=== PATIENT | female | born 1970 | race American Indian/Alaskan Native ===

== ENCOUNTER 2017-11-04 20:08 | Emergency (ER) | payer OTHER ==
[2017-11-04 20:22] VITALS: BP 141/83
--- NOTE | 2017-11-04 21:03 | Emergency Department Report ---
Abscess Boil HPI - HPI Chief Complaint: Skin/Abscess/Foreign Body Stated Complaint: BOIL Time Seen by Provider: 11/04/17 20:58 History: Yes Pain, No Fever, No Purulent Drainage, No Numbness, No Foreign Body , No Previous History, No Insect Bite HPI: 46-year-old -[place] female comes in for 3 day history of abscess under right arm. Patient has a past medical history hypertension diabetes hyperlipidemia. She reports that the abscess is tender very painful when she moves her arm. She didn't take an [id number] pain medication which she says has not really helped since the abscess is getting larger. Home Medications: Home Medications Medication Instructions Recorded Confirmed Last Taken Ferrous Gluconate [Iron] 236 mg PO BID 02/10/15 02/17/15 02/16/15 Levemir Flextouch 30 unit SQ HS 02/10/15 02/17/15 02/16/15 Lisinopril 10 mg PO DAILY 02/10/15 02/17/15 02/17/15 05:15 NovoLOG Mix 70/30 20 unit SQ QPM 02/10/15 02/17/15 02/16/15 NovoLOG Mix 70/30 40 unit SQ QAM 02/10/15 02/17/15 02/16/15 Ranitidine HCl [Acid Import Export Clerk] 75 mg PO DAILY 02/10/15 02/17/15 02/17/15 05:15 Previous Rx's Medication Instructions Recorded Last Taken Type Docusate Sodium [Colace] 100 mg PO BID PRN #60 capsule 02/18/15 Unknown Rx Ibuprofen [Motrin] 800 mg PO Q8H PRN #60 tablet 02/18/15 Unknown Rx Meth/Meblue/Sod Phos/Psal/Hyos 1 each PO TID #42 capsule 02/18/15 Unknown Rx [Uribel Capsule] Nitrofurantoin [place]/M-Cryst 100 mg PO QDAY #14 capsule 02/18/15 Unknown Rx [Macrobid] oxyCODONE /ACETAMINOPHEN [Percocet 1 tab PO Q6HR PRN #45 tablet 02/18/15 Unknown Rx 5/325] Acetaminophen/Codeine [Tylenol 1 tab PO Q6H PRN 3 Days #12 tab 11/04/17 Unknown Rx /Codeine # 3 tab] Cephalexin [Keflex] 500 mg PO BID 10 Days #20 capsule 11/04/17 Unknown Rx Allergies/Adverse Reactions: Allergies Allergy/AdvReac Type Severity Reaction Status Date / Time No Known Allergies Allergy Verified 11/04/17 20:19 ED Review of Systems ROS: Stated complaint: BOIL Other details as noted in HPI Comment: All other systems reviewed and negative Constitutional: denies: chills, fever Eyes: denies: eye pain, eye discharge, vision change ENT: denies: ear pain, throat pain Respiratory: denies: cough, shortness of breath, wheezing Cardiovascular: denies: chest pain, palpitations Endocrine: no symptoms reported Gastrointestinal: denies: abdominal pain, nausea, diarrhea Genitourinary: denies: urgency, dysuria, discharge Musculoskeletal: denies: back pain, joint swelling, arthralgia Skin: lesions Neurological: denies: headache, weakness, paresthesias Psychiatric: denies: anxiety, depression Hematological/Lymphatic: denies: easy bleeding, easy bruising ED Past Medical Hx - Past Medical History Hx Hypertension: Yes (x 7 yrs, lisinopril) Hx Heart Attack/AMI: No Hx Congestive Heart Failure: No Hx Diabetes: Yes Hx GERD: Yes Hx Liver Disease: No Hx Renal Disease: No Hx Seizures: No Hx Asthma: No Hx COPD: No - Surgical History Additional Surgical History: Hyst - Social History Smoking Status: Never Smoker Substance Use Type: None - Medications Home Medications: Home Medications Medication Instructions Recorded Confirmed Last Taken Type Ferrous Gluconate [Iron] 236 mg PO BID 02/10/15 02/17/15 02/16/15 History Levemir Flextouch 30 unit SQ HS 02/10/15 02/17/15 02/16/15 History Lisinopril 10 mg PO DAILY 02/10/15 02/17/15 02/17/15 05:15 History NovoLOG Mix 70/30 20 unit SQ QPM 02/10/15 02/17/15 02/16/15 History NovoLOG Mix 70/30 40 unit SQ QAM 02/10/15 02/17/15 02/16/15 History Ranitidine HCl [Acid Import Export Clerk] 75 mg PO DAILY 02/10/15 02/17/15 02/17/15 05:15 History Docusate Sodium [Colace] 100 mg PO BID PRN #60 capsule 02/18/15 Unknown Rx Ibuprofen [Motrin] 800 mg PO Q8H PRN #60 tablet 02/18/15 Unknown Rx Meth/Meblue/Sod Phos/Psal/Hyos 1 each PO TID #42 capsule 02/18/15 Unknown Rx [Uribel Capsule] Nitrofurantoin [place]/M-Cryst 100 mg PO QDAY #14 capsule 02/18/15 Unknown Rx [Macrobid] oxyCODONE /ACETAMINOPHEN [Percocet 1 tab PO Q6HR PRN #45 tablet 02/18/15 Unknown Rx 5/325] Acetaminophen/Codeine [Tylenol 1 tab PO Q6H PRN 3 Days #12 tab 11/04/17 Unknown Rx /Codeine # 3 tab] Cephalexin [Keflex] 500 mg PO BID 10 Days #20 capsule 11/04/17 Unknown Rx ED Abscess Boil Physical Exam - Exam General: Vital signs noted. No distress. Alert and acting appropriately. Front/Back of Body, Lg (Color): 1 - 5 cm abscess Size: 5 cm Exam: Yes Tenderness, Yes Fluctuance, Yes Normal Neurologic Exam, Yes Normal Circulation, No Surrounding Cellulites/Erythema, No Crepitation, No Heart Murmur ED Course Vital Signs 11/04/17 20:20 Temperature 97.6 F Pulse Rate 86 Respiratory 20 Rate Blood Pressure 141/83 O2 Sat by Pulse 98 Oximetry Critical care attestation.: If time is entered above; I have spent that time in minutes in the direct care of this critically ill patient, excluding procedure time. ED Medical Decision Making - Medical Decision Making Patient has been evaluated by this provider fast track. Discussed the patient will need to incision and drain the abscess under her right axillary. Discussed with patient that we will place her on antibiotics and have her return in 2-3 days for wound packing removal. Patient verbalized understanding. ED Disposition Clinical Impression: Abscess of right axilla Disposition: DC-01 TO HOME OR SELFCARE Is pt being admited?: No Does the pt Need Aspirin: No Condition: Stable Instructions: Abscess (ED) Additional Instructions: Complete antibiotic as prescribed. Return to the emergency room for packing change in 2 days. Take pain medication as prescribed to not operate heavy machinery while on pain medication. He can follow-up with her primary care doctor in 3-5 days. Prescriptions: Acetaminophen/Codeine [Tylenol /Codeine # 3 tab] 1 tab PO Q6H PRN 3 Days #12 tab PRN Reason: Pain Cephalexin [Keflex] 500 mg PO BID 10 Days #20 capsule Referrals: DARRELL JOHN MD [Primary Care Provider] - 3-5 Days Forms: Work/School Release Form(ED), Accompanied Note
[2017-11-04] MEDS ORDERED: ATIVAN PO ONE ×2 (21:20→21:37)
[2017-11-04] MEDS ORDERED: NORCO 5/325 PO ONE (21:21)
== END 2017-11-04 22:29 | disposition home or self-care (01) ==
LOC: ED 20:08
DX: L02.411 Cutaneous abscess of right axilla (principal); E11.9 Type 2 diabetes mellitus without complications; K21.9 Gastro-esophageal reflux disease without esophagitis; I10 Essential (primary) hypertension
CPT/HCPCS: 99282

== ENCOUNTER 2017-11-07 14:38 | Emergency (ER) | payer OTHER ==
[2017-11-07 14:56] VITALS: BP 100/76
--- NOTE | 2017-11-07 18:05 | Emergency Department Report ---
- General Chief Complaint: Skin/Abscess/Foreign Body Stated Complaint: PACKING REMOVAL Time Seen by Provider: 11/07/17 17:58 Source: patient Mode of arrival: Ambulatory Limitations: No Limitations - History of Present Illness Initial Comments: Patient is a 46-year-old female who presents to ED for wound packing removal from the right axilla. Patient states abscess was drained on Sunday, 3 days ago and packing was placed on Sunday. Patient states she's been changing the wound daily. Signed she denies fevers/chills/nausea vomiting or any other problems. - Related Data Home Medications Medication Instructions Recorded Confirmed Last Taken Ferrous Gluconate [Iron] 236 mg PO BID 02/10/15 02/17/15 02/16/15 Levemir Flextouch 30 unit SQ HS 02/10/15 02/17/15 02/16/15 Lisinopril 10 mg PO DAILY 02/10/15 02/17/15 02/17/15 05:15 NovoLOG Mix 70/30 20 unit SQ QPM 02/10/15 02/17/15 02/16/15 NovoLOG Mix 70/30 40 unit SQ QAM 02/10/15 02/17/15 02/16/15 Ranitidine HCl [Acid Director Of Broadcast] 75 mg PO DAILY 02/10/15 02/17/15 02/17/15 05:15 Previous Rx's Medication Instructions Recorded Last Taken Type Docusate Sodium [Colace] 100 mg PO BID PRN #60 capsule 02/18/15 Unknown Rx Ibuprofen [Motrin] 800 mg PO Q8H PRN #60 tablet 02/18/15 Unknown Rx Meth/Meblue/Sod Phos/Psal/Hyos 1 each PO TID #42 capsule 02/18/15 Unknown Rx [Uribel Capsule] Nitrofurantoin [place]/M-Cryst 100 mg PO QDAY #14 capsule 02/18/15 Unknown Rx [Macrobid] oxyCODONE /ACETAMINOPHEN [Percocet 1 tab PO Q6HR PRN #45 tablet 02/18/15 Unknown Rx 5/325] Acetaminophen/Codeine [Tylenol 1 tab PO Q6H PRN 3 Days #12 tab 11/04/17 Unknown Rx /Codeine # 3 tab] Cephalexin [Keflex] 500 mg PO BID 10 Days #20 capsule 11/04/17 Unknown Rx Allergies Allergy/AdvReac Type Severity Reaction Status Date / Time No Known Allergies Allergy Verified 11/07/17 14:51 ED Review of Systems ROS: Stated complaint: PACKING REMOVAL Other details as noted in HPI Constitutional: denies: chills, fever Eyes: denies: eye pain, eye discharge, vision change ENT: denies: ear pain, throat pain Respiratory: denies: cough, shortness of breath, wheezing Cardiovascular: denies: chest pain, palpitations Endocrine: no symptoms reported Gastrointestinal: denies: abdominal pain, nausea, diarrhea Genitourinary: denies: urgency, dysuria, discharge Musculoskeletal: denies: back pain, joint swelling, arthralgia Skin: denies: rash, lesions Neurological: denies: headache, weakness, paresthesias Psychiatric: denies: anxiety, depression Hematological/Lymphatic: denies: easy bleeding, easy bruising ED Past Medical Hx - Past Medical History Previous Medical History?: Yes Hx Hypertension: Yes (x 7 yrs, lisinopril) Hx Heart Attack/AMI: No Hx Congestive Heart Failure: No Hx Diabetes: Yes Hx GERD: Yes Hx Liver Disease: No Hx Renal Disease: No Hx Seizures: No Hx Asthma: No Hx COPD: No - Surgical History Past Surgical History?: Yes Additional Surgical History: Hyst - Social History Smoking Status: Never Smoker Substance Use Type: None - Medications Home Medications: Home Medications Medication Instructions Recorded Confirmed Last Taken Type Ferrous Gluconate [Iron] 236 mg PO BID 02/10/15 02/17/15 02/16/15 History Levemir Flextouch 30 unit SQ HS 02/10/15 02/17/15 02/16/15 History Lisinopril 10 mg PO DAILY 02/10/15 02/17/15 02/17/15 05:15 History NovoLOG Mix 70/30 20 unit SQ QPM 02/10/15 02/17/15 02/16/15 History NovoLOG Mix 70/30 40 unit SQ QAM 02/10/15 02/17/15 02/16/15 History Ranitidine HCl [Acid Director Of Broadcast] 75 mg PO DAILY 02/10/15 02/17/15 02/17/15 05:15 History Docusate Sodium [Colace] 100 mg PO BID PRN #60 capsule 02/18/15 Unknown Rx Ibuprofen [Motrin] 800 mg PO Q8H PRN #60 tablet 02/18/15 Unknown Rx Meth/Meblue/Sod Phos/Psal/Hyos 1 each PO TID #42 capsule 02/18/15 Unknown Rx [Uribel Capsule] Nitrofurantoin [place]/M-Cryst 100 mg PO QDAY #14 capsule 02/18/15 Unknown Rx [Macrobid] oxyCODONE /ACETAMINOPHEN [Percocet 1 tab PO Q6HR PRN #45 tablet 02/18/15 Unknown Rx 5/325] Acetaminophen/Codeine [Tylenol 1 tab PO Q6H PRN 3 Days #12 tab 11/04/17 Unknown Rx /Codeine # 3 tab] Cephalexin [Keflex] 500 mg PO BID 10 Days #20 capsule 11/04/17 Unknown Rx ED Physical Exam - General Limitations: No Limitations General appearance: alert, in no apparent distress - Head Head exam: Present: atraumatic, normocephalic - Eye Eye exam: Present: normal appearance, PERRL - ENT ENT exam: Present: mucous membranes moist - Neck Neck exam: Present: normal inspection - Respiratory Respiratory exam: Present: normal lung sounds bilaterally. Absent: respiratory distress, wheezes, rales, rhonchi - Cardiovascular Cardiovascular Exam: Present: regular rate, normal rhythm. Absent: systolic murmur, diastolic murmur, rubs, gallop - GI/Abdominal GI/Abdominal exam: Present: soft, normal bowel sounds - Extremities Exam Extremities exam: Present: normal inspection - Back Exam Back exam: Present: normal inspection - Neurological Exam Neurological exam: Present: alert, oriented X3, CN II-XII intact - Psychiatric Psychiatric exam: Present: normal affect, normal mood - Skin Skin exam: Present: warm, dry, intact, normal color, other (wound looks mod healed no pus d/c). Absent: rash ED Course Vital Signs 11/07/17 14:51 Temperature 98 F Pulse Rate 98 H Respiratory 18 Rate Blood Pressure 100/76 O2 Sat by Pulse 94 Oximetry ED Medical Decision Making - Medical Decision Making 46-year-old female presents with wound check and packing removal ED course: Packing was removed from right axilla, wound cleaned and flushed. No sign of infection. Thoroughly tripped I discussed the patient acute wound care not to take care of the wound properly to his heel. I discussed with the patient follow-up primary care physician for continued wound checks. The patient tolerated procedure well she is in no acute distress Vital signs are normal. Critical care attestation.: If time is entered above; I have spent that time in minutes in the direct care of this critically ill patient, excluding procedure time. ED Disposition Clinical Impression: Wound check, abscess Disposition: DC-01 TO HOME OR SELFCARE Is pt being admited?: No Does the pt Need Aspirin: No Condition: Stable Instructions: Acute Wound Care (ED), Sitz Bath (GEN) Additional Instructions: Make sure to follow up with the primary care physician as discussed. Take all your medications as you've been prescribed. If you have any worsening symptoms or develop new symptoms please return to ED immediately. Referrals: DARRELL JOHN MD [Primary Care Provider] - 3-5 Days Forms: Accompanied Note, Work/School Release Form(ED) Time of Disposition: 18:00
== END 2017-11-07 18:15 | disposition home or self-care (01) ==
LOC: ED 14:38
DX: Z48.01 Encounter for change or removal of surgical wound dressing (principal); I10 Essential (primary) hypertension; E11.9 Type 2 diabetes mellitus without complications; K21.9 Gastro-esophageal reflux disease without esophagitis

== ENCOUNTER 2018-01-23 13:40 | Outpatient (CLI) | payer OTHER ==
--- NOTE | 2018-01-23 15:17 | Mammography Report ---
BILATERAL MAMMOGRAM: FINDINGS: The breasts are almost entirely fat (<25% glandular). No mass, distortion, suspicious calcification, or skin change is seen. No significant change when compared to prior exam in September 2016. CAD was utilized. IMPRESSION: Negative mammogram. There is no mammographic evidence of malignancy. RECOMMENDATION: Follow-up per ACS guidelines. BI-RADS CATEGORY: 1 = Negative ACR BI-RADS MAMMOGRAPHIC CODES: 0 = Needs additional imaging evaluation; 1 = Negative; 2 = Benign; 3 = Probably benign; 4 = Suspicious; 5 = Malignant; 6 = Known biopsy-proven malignancy COMMENT: 1. Dense breast tissue, i.e., adenosis, fibrocystic changes, etc., may obscure an underlying neoplasm. 2. Approximately 10% of cancers are not detected with mammography. 3. A negative mammography report should not delay biopsy if a clinically suspicious mass is present. COMMENT: Patient follow-up letters are generated in [employer].
== END 2018-01-23 13:41 | disposition home or self-care (01) ==
LOC: MAMMO 13:40
PROVIDERS: ATTEND Nurse Practitioner Family
DX: Z12.31 Encounter for screening mammogram for malignant neoplasm of breast (principal); I10 Essential (primary) hypertension; K21.9 Gastro-esophageal reflux disease without esophagitis
CPT/HCPCS: 77067

== ENCOUNTER 2018-05-09 11:20 | Day surgery (SDC) | payer OTHER ==
[~2018-05-09 11:20] MED LIST: NACL 0.9% 1000 ML 1,000 ML IV SCH
--- NOTE | 2018-05-09 12:53 | Anesthesia Consultation ---
Anesthesia Consult and Med Hx Date of service: 05/09/18 - Airway Anesthetic Teeth Evaluation: Poor (missing teeth), Dentures (upper) ROM Head & Neck: Adequate Mental/Hyoid Distance: Adequate Mallampati Class: Class III Intubation Access Assessment: Possibly Difficult - Pre-Operative Health Status ASA Pre-Surgery Classification: ASA3 Proposed Anesthetic Plan: MAC - Pulmonary Hx Smoking: No Hx Asthma: No COPD: No Hx Pneumonia: No Hx Sleep Apnea: No - Cardiovascular System Hx Hypertension: Yes Hx Coronary Artery Disease: No Hx Heart Attack/AMI: No Hx Angina: No (>4METs) - Central Nervous System Hx Seizures: No CVA: No Hx Psychiatric Problems: No - Gastrointestinal Hx Gastroesophageal Reflux Disease: Yes (told to take daily omeprazole DOS) - Endocrine Hx Renal Disease: No Hx End Stage Renal Disease: No Hx Liver Disease: No Hx Insulin Dependent Diabetes: Yes Hx Non-Insulin Dependent Diabetes: No Hx Thyroid Disease: No - Hematic Hx Anemia: Yes - Other Systems Hx Alcohol Use: Yes (occas) Hx Substance Use: Yes (marijuana usually twice per day) Hx Cancer: No Hx Obesity: Yes (BMI 35.5)
--- NOTE | 2018-05-09 12:54 | Anesthesia Day of Surgery ---
Anesthesia Day of Surgery - Day of Surgery Patient Examined: Yes Patient H&P Reviewed: Yes Patient is NPO: Yes
[2018-05-09] MEDS ORDERED: DIPRIVAN 10 MG/ML IV ONE (13:24)
[2018-05-09] MEDS ORDERED: WATER FOR IRRIG STERILE IR ONE (13:53)
--- NOTE | 2018-05-09 13:53 | Operative Report ---
Operative Report Operative Report: Date: 05/09/2018 Operative Report: Date of procedure: 05/09/2018 Procedure: Esophagogastroduodenoscopy with multiple mucosal biopsies. Attending physician: Colt López MD Director Digital Strategy: Colt López MD Indication: Patient is a 47 -year-old female who presented with a history of recurrent epigastric pain, heartburn and indigestion. An upper endoscopy is done to assess patient, so that treatment may be directed based on the findings. Consent: Informed consent was obtained after advising the patient and family regarding nature of this procedure, its indications, potential benefits as well as possible complications including but not limited to bleeding perforation and adverse reaction to medication, infection as well as other cardiopulmonary complications. An informed written and verbal consent was then obtained after due opportunity was provided for questions and answers. Monitoring: Patient was monitored continuously with pulse oximetry and electrocardiographic recordings as well as blood pressure recordings. Vital signs remained stable throughout this procedure with no untoward events. Preoperative assessment: Patient was assessed immediately prior to this procedure for capacity to tolerate monitored anesthesia care and moderate sedation as well as general anesthesia. Patient's ASA classification is 2, Mallampati class is 2, Hyomental distance is 3. Instrument: remoceann video endoscope Medications: Propofol given intravenously in divided doses. For details please refer to anesthesia records. Description of procedure: Patient was placed in the left lateral decubitus position after achieving sedation, the endoscope was introduced into the esophagus under direct vision. It was then advanced beyond the esophagus into the stomach and then beyond the stomach into the duodenum and to the second portion of the duodenum. It was subsequently withdrawn with careful inspection of all mucosal surfaces with the following findings. Findings: Patient has an irregular Z line at 38 cm. There was a sliding hiatal hernia seen on entry into the stomach. There was erythema in the gastric antrum. Biopsies of the antrum were obtained for histopathology. The duodenum was normal to second portion. Impression: Irregular Z line. Gastric antral erythema Hiatal hernia. Plan: Continue treatment with proton pump inhibitors. Follow pathology report. Direct additional treatment based on the pathology report.
--- NOTE | 2018-05-09 13:54 | Discharge Summary ---
Short Stay Discharge Plan Activity: advance as tolerated Weight Bearing Status: Weight Bear as Tolerated Diet: regular Follow up with: AMINAH JO NP [Primary Care Provider] - 7 Days
[2018-05-09] MEDS ORDERED: XYLOCAINE MPF 2% ONE (14:00)
[2018-05-09 14:18] VITALS: BP 144/61
== END 2018-05-09 11:21 | disposition home or self-care (01) ==
LOC: GIO 11:20
PROVIDERS: ATTEND Internal Medicine Gastroenterology
DX: K31.89 Other diseases of stomach and duodenum (principal); K44.9 Diaphragmatic hernia without obstruction or gangrene; I10 Essential (primary) hypertension; E78.00 Pure hypercholesterolemia, unspecified; K21.9 Gastro-esophageal reflux disease without esophagitis; E11.9 Type 2 diabetes mellitus without complications; E66.9 Obesity, unspecified; Z68.35 Body mass index [BMI] 35.0-35.9, adult; Z90.710 Acquired absence of both cervix and uterus; Z79.899 Other long term (current) drug therapy
CPT/HCPCS: 43239; 82962; 88305; 88342; J2704; J7030

== ENCOUNTER 2019-01-24 07:32 | Outpatient (CLI) | payer SELFPAY ==
--- NOTE | 2019-01-24 10:03 | Mammography Report ---
BILATERAL DIGITAL SCREENING MAMMOGRAM with CAD: 01/24/19 07:32:00 CLINICAL: Routine screening. COMPARISON:01/23/18 and 09/26/16 FINDINGS: The breasts are almost entirely fatty. No mass, architectural distortion or suspicious calcifications. IMPRESSION: No mammographic evidence of malignancy. BI-RADS CATEGORY: 2 -- Benign RECOMMENDATION: Routine mammographic screening in one year. COMMENT: Patient follow-up letters are generated by our [employer] application.
== END 2019-01-24 07:33 | disposition home or self-care (01) ==
LOC: MAMMO 07:32
PROVIDERS: ATTEND Nurse Practitioner Family
DX: Z12.31 Encounter for screening mammogram for malignant neoplasm of breast (principal); E78.00 Pure hypercholesterolemia, unspecified; I10 Essential (primary) hypertension; K21.9 Gastro-esophageal reflux disease without esophagitis; E66.9 Obesity, unspecified; E11.9 Type 2 diabetes mellitus without complications; Z90.710 Acquired absence of both cervix and uterus
CPT/HCPCS: 77067

== ENCOUNTER 2020-05-05 12:12 | Outpatient (CLI) | payer OTHER ==
--- NOTE | 2020-05-05 13:53 | Mammography Report ---
BILATERAL DIGITAL SCREENING MAMMOGRAM WITH CAD HISTORY: Screening mammogram. TECHNIQUE: Routine digital mammographic imaging performed. This examination was interpreted with ilya rich benefit of Computer-aided Detection analysis. COMPARISON: 01/24/2019, 01/23/2018, 09/26/2016. FINDINGS: Breast Density: scattered fibroglandular appearance of the breast tissue. Digital CC and MLO views demonstrate no mammographic evidence of malignancy. A left lower inner [address] focal asymmetry is stable. Long-term stability would support a benign etiology. IMPRESSION: No mammographic evidence of malignancy. If the clinical examination remains stable, recommend bilate ral mammogram in approximately one year. BIRADS 2: Benign Finding(s). FURTHER INFORMATION: According to the [employer], yearly mammograms are recommend ed starting at age 40 and continuing as long as a woman is in good health. Clinical Breast Exams shou ld be part of a periodic health exam-about every 3 years for women in their 20s and 30s and every yea r for women 40 and over. Breast self exam is an option for women starting in their 20s. Any breast ch ethan noted on a breast self exam should be reported promptly to the patient's healthcare provider. Br east MRI is recommended for women with an approximately 20-25% or greater lifetime risk of breast can cer, including women with a strong family history of breast or ovarian cancer and women who have been treated for Hodgkin's disease. A negative Mammography report should not discourage follow up or biopsy of a clinically significant f inding and/or abnormality. Dense breast tissue may obscure small neoplasms. The patient will be entered into a reminder system with a target due date for the next screening mamm ogram. Signer Name: Rigoberto Larsen MD Signed: 05/05/2020 1:48 PM Workstation Name: [id number]
== END 2020-05-05 12:13 | disposition home or self-care (01) ==
LOC: MAMMO 12:12
PROVIDERS: ATTEND Nurse Practitioner Family
DX: Z12.31 Encounter for screening mammogram for malignant neoplasm of breast (principal); N64.89 Other specified disorders of breast
CPT/HCPCS: 77067

== ENCOUNTER 2021-05-06 12:07 | Outpatient (CLI) | payer OTHER ==
--- NOTE | 2021-05-10 10:06 | Mammography Report ---
DIGITAL SCREENING MAMMOGRAM WITH CAD, 05/10/2021 CLINICAL INFORMATION / INDICATION: Routine screening mammography. SCRN MAMMO TECHNIQUE: Digital bilateral 2D mammography was obtained in the craniocaudal and mediolateral obliqu e projections. This examination was interpreted with the benefit of Computer-Aided Detection analysis . COMPARISON: 05/05/2020. 01/24/2019. 01/23/2018. FINDINGS: Breast Density: There are scattered areas of fibroglandular density. No dominant mass, suspicious calcifications, or architectural distortion in either breast. IMPRESSION: No mammographic evidence of malignancy. Follow up recommendation: Routine yearly BI-RADS Category 1: Negative. A "normal" or negative report should not discourage follow up or biopsy of a clinically significant f inding. A written summary of these findings will be mailed to the patient. The patient will be entered into a mammography reporting system which will generate a reminder letter for the patient's next appointmen t at the appropriate interval. The [employer] recommends yearly mammograms starting at age 40 and continuing as l kassie as a woman is in good health. Breast MRI is recommended for women with an approximate 20-25% or greater lifetime risk of breast cancer, including women with a strong family history of breast or ova phillip cancer or who have been treated for Hodgkin's disease. Signer Name: Lennox Donahue MD Signed: 05/10/2021 10:02 AM Workstation Name: [id number]
== END 2021-05-06 12:08 | disposition home or self-care (01) ==
LOC: MAMMO 12:07
PROVIDERS: ATTEND Nurse Practitioner Family
DX: Z12.31 Encounter for screening mammogram for malignant neoplasm of breast (principal)
CPT/HCPCS: 77067